=== PATIENT | female | born 1955 | race Hispanic/Latino ===

== ENCOUNTER 2019-12-06 08:46 | Day surgery (SDC) | payer MEDICARE ==
[~2019-12-06] VITALS: Ht 152.4 cm; Wt 54.4 kg
[~2019-12-06 08:46] MED LIST: CARV6.25 PO; FISH OIL PO; IPRA3AMP24 IH; LISI10TA7 PO; OMEP40CA13 PO; SIMV40TA59 PO; SODIUM CHLORIDE 0.9% 1000ML 1,000 ML IV ONE; TYLENOL PM PO; VITAMIN D PO; WARF2.5T9 PO; WARF5TAB8 PO
[2019-12-06 10:00] VITALS: BP 105/51
[2019-12-06 10:09] LABS: INR 1.04 (0.85-1.15); PROTHROMBIN TIME 10.9 SEC (9.6-11.6)
[2019-12-06] MEDS ORDERED: FURO40TA5 PO (10:37)
[2019-12-06] MEDS ORDERED: PROPOFOL 10 MG/ML 20ML VIAL IV ONE (11:00)
[2019-12-06 11:22] VITALS: BP 84/32
[2019-12-06 11:27] VITALS: BP 91/34
[2019-12-06 11:32] VITALS: BP 92/41
[2019-12-06 11:38] VITALS: BP 98/51
[2019-12-06 11:47] VITALS: BP 101/64
== END 2019-12-06 11:50 | disposition home or self-care (01) ==
LOC: ENDO 08:46 → DAH 08:46 → ENDO 11:50
PROVIDERS: ATTEND Internal Medicine
DX: Z12.11 Encounter for screening for malignant neoplasm of colon (principal); K57.30 Diverticulosis of large intestine without perforation or abscess without bleeding; K64.0 First degree hemorrhoids; K21.9 Gastro-esophageal reflux disease without esophagitis; I11.0 Hypertensive heart disease with heart failure; I50.9 Heart failure, unspecified; I25.10 Atherosclerotic heart disease of native coronary artery without angina pectoris; J44.9 Chronic obstructive pulmonary disease, unspecified; E78.5 Hyperlipidemia, unspecified; Z95.0 Presence of cardiac pacemaker; Z98.890 Other specified postprocedural states; Z95.2 Presence of prosthetic heart valve; Z79.899 Other long term (current) drug therapy; Z72.89 Other problems related to lifestyle; Z79.01 Long term (current) use of anticoagulants; Z86.010 Personal history of colon polyps; Z82.49 Family history of ischemic heart disease and other diseases of the circulatory system; Z83.3 Family history of diabetes mellitus; Z82.3 Family history of stroke
CPT/HCPCS: 36415; 45378; 85610; A4215; A4221; A4222; A4223; A4606; A4615; A4663; J2704; J7030

== ENCOUNTER → 2020-03-21 | Outpatient (CLI) | payer MEDICARE ==
[~2020-03-21] MED LIST changes: +FURO40TA5 PO; -SODIUM CHLORIDE 0.9% 1000ML 1,000 ML IV ONE
== END | disposition home or self-care (01) ==
LOC: SHCH 10:32
PROVIDERS: ATTEND Internal Medicine Cardiovascular Disease
DX: I07.1 Rheumatic tricuspid insufficiency (principal); I10 Essential (primary) hypertension; Z95.0 Presence of cardiac pacemaker; Z95.2 Presence of prosthetic heart valve
CPT/HCPCS: 93306

== ENCOUNTER 2021-08-15 10:44 | Inpatient (IN) | payer MEDICARE ==
[~2021-08-15] VITALS: Ht 152.4 cm; Wt 54.1 kg
[~2021-08-15 10:44] MED LIST changes: +LISI10TA24 PO; -LISI10TA7 PO; -OMEP40CA13 PO; +OMEP40CA21 PO
[2021-08-15 11:20] LABS: BASOPHILS % (AUTO) 1.1 % (0.0-5.0); EOSINOPHILS % (AUTO) 3.2 % (0.0-8.0); HEMATOCRIT 37.7 % (36-48); LYMPHOCYTES % (AUTO) 20.7 % (21.0-51.0); MEAN CORPUSCULAR HEMOGLOBIN 33.2 pg (27.0-33.0); MEAN CORPUSCULAR HGB CONC 33.2 g/dL (32.0-36.0); MEAN CORPUSCULAR VOLUME 100.3 fL (79-99); MONOCYTES % (AUTO) 16.1 % (3.0-13.0); NEUTROPHILS % (AUTO) 58.5 % (40.0-77.0); PLATELET COUNT (AUTO) 313 K/uL (130-400); RED BLOOD CELL COUNT(AUTO) 3.76 MIL/uL (4.00-5.50); WHITE BLOOD COUNT (AUTO) 7.2 K/uL (4.8-10.8)
[2021-08-15 11:28] LABS: ALBUMIN 3.9 g/dL (3.5-5.0); BILIRUBIN,DIRECT 0.1 mg/dL (0.0-0.3); BILIRUBIN,TOTAL 0.2 mg/dL (0.2-1.0); CREATININE 4.7 mg/dL (0.5-1.5); POTASSIUM 5.2 mmol/L (3.5-5.1); TOTAL PROTEIN, SERUM 8.3 g/dL (6.0-8.3)
[2021-08-15 11:33] LABS: B-TYPE NATRIURETIC PEPTIDE 142 pg/mL (0-100)
[2021-08-15] MEDS: DEXTROSE 5 %-0.45 % NACL 1,000 ML IV SCH ×2 (12:30→23:51)
[2021-08-15] MEDS ORDERED: LACTULOSE 20 GM/30 ML UDCUP PO PRN (12:30)
[2021-08-15] MEDS ORDERED: ACETAMINOPHEN 325 MG TAB PO PRN (12:30)
[2021-08-15] MEDS ORDERED: DIPHENHYDRAMINE HCL 25 MG CAPSULE PO PRN (12:30)
[2021-08-15] MEDS ORDERED: ONDANSETRON 4MG INJ IVP PRN (12:30)
[2021-08-15] MEDS ORDERED: WARFARIN SODIUM 2 MG TAB PO SCH (16:00)
[2021-08-15] MEDS ORDERED: MULT-1367 PO (16:35)
[2021-08-15] MEDS: WARFARIN SODIUM 2 MG TAB PO SCH (21:38)
[2021-08-15] MEDS: IPRATROPIUM/ALBUTEROL SULFATE 3 ML SOLUTION IH SCH (23:35)
[2021-08-16 02:15] VITALS: BP 123/42
[2021-08-16 05:46] LABS: BASOPHILS % (AUTO) 1.4 % (0.0-5.0); EOSINOPHILS % (AUTO) 6.4 % (0.0-8.0); HEMATOCRIT 34.6 % (36-48); LYMPHOCYTES % (AUTO) 30.4 % (21.0-51.0); MEAN CORPUSCULAR HEMOGLOBIN 33.4 pg (27.0-33.0); MEAN CORPUSCULAR HGB CONC 33.2 g/dL (32.0-36.0); MEAN CORPUSCULAR VOLUME 100.6 fL (79-99); NEUTROPHILS % (AUTO) 45.5 % (40.0-77.0); PLATELET COUNT (AUTO) 301 K/uL (130-400); RED BLOOD CELL COUNT(AUTO) 3.44 MIL/uL (4.00-5.50); RED CELL DISTRIBUTION WIDTH 13.1 % (11.0-15.5); WHITE BLOOD COUNT (AUTO) 6.5 K/uL (4.8-10.8)
[2021-08-16 06:07] LABS: BILIRUBIN,DIRECT 0.1 mg/dL (0.0-0.3); BILIRUBIN,TOTAL 0.2 mg/dL (0.2-1.0); CREATININE 2.1 mg/dL (0.5-1.5); POTASSIUM 4.9 mmol/L (3.5-5.1); TOTAL PROTEIN, SERUM 7.3 g/dL (6.0-8.3)
[2021-08-16] MEDS: IPRATROPIUM/ALBUTEROL SULFATE 3 ML SOLUTION IH SCH ×3 (06:22→22:30)
[2021-08-16 08:00] VITALS: BP 97/46
[2021-08-16] MEDS: FAMOTIDINE 20MG TAB PO SCH (09:07)
[2021-08-16] MEDS: DEXTROSE 5 %-0.45 % NACL 1,000 ML IV SCH ×2 (09:07→18:30)
[2021-08-16 10:35] LABS: INR 2.9 (0.85-1.15); PROTHROMBIN TIME 28.7 SEC (9.6-11.6)
[2021-08-16 12:00] VITALS: BP_SYST 93; BP_SYST 99; BP_DIAS 36; BP_DIAS 46
[2021-08-16 16:00] VITALS: BP 102/50
[2021-08-16 20:20] VITALS: BP 118/54
[2021-08-16] MEDS ORDERED: WARFARIN SODIUM 5 MG TAB PO SCH (22:00)
[2021-08-17 00:24] VITALS: BP 112/52
[2021-08-17] MEDS: DEXTROSE 5 %-0.45 % NACL 1,000 ML IV SCH ×2 (03:16→15:38)
[2021-08-17 04:24] VITALS: BP 111/54
[2021-08-17 05:25] LABS: BASOPHILS % (AUTO) 1.5 % (0.0-5.0); EOSINOPHILS % (AUTO) 4.5 % (0.0-8.0); HEMATOCRIT 31.2 % (36-48); LYMPHOCYTES % (AUTO) 30.3 % (21.0-51.0); MEAN CORPUSCULAR HEMOGLOBIN 33.4 pg (27.0-33.0); MEAN CORPUSCULAR HGB CONC 33.3 g/dL (32.0-36.0); MEAN CORPUSCULAR VOLUME 100.3 fL (79-99); MONOCYTES % (AUTO) 14.2 % (3.0-13.0); NEUTROPHILS % (AUTO) 49.3 % (40.0-77.0); PLATELET COUNT (AUTO) 275 K/uL (130-400); RED BLOOD CELL COUNT(AUTO) 3.11 MIL/uL (4.00-5.50); RED CELL DISTRIBUTION WIDTH 13.1 % (11.0-15.5)
[2021-08-17 05:37] LABS: INR 2.31 (0.85-1.15); PROTHROMBIN TIME 23.3 SEC (9.6-11.6)
[2021-08-17 06:04] LABS: ALBUMIN 3.1 g/dL (3.5-5.0); BILIRUBIN,TOTAL 0.2 mg/dL (0.2-1.0); CREATININE 1.3 mg/dL (0.5-1.5); POTASSIUM 4.6 mmol/L (3.5-5.1); TOTAL PROTEIN, SERUM 6.8 g/dL (6.0-8.3)
[2021-08-17] MEDS: IPRATROPIUM/ALBUTEROL SULFATE 3 ML SOLUTION IH SCH ×3 (06:44→22:22)
[2021-08-17] MEDS: FAMOTIDINE 20MG TAB PO SCH (08:35)
[2021-08-17 09:27] VITALS: BP 119/53
[2021-08-17 12:00] VITALS: BP 123/57
[2021-08-17 18:53] VITALS: BP 120/53
[2021-08-17 20:20] VITALS: BP 124/58
[2021-08-17] MEDS: WARFARIN SODIUM 2 MG TAB PO SCH (22:06)
[2021-08-18 00:24] VITALS: BP 109/48
[2021-08-18] MEDS: DEXTROSE 5 %-0.45 % NACL 1,000 ML IV SCH (02:35)
[2021-08-18 04:24] VITALS: BP 132/48
[2021-08-18 05:22] LABS: BASOPHILS % (AUTO) 1.3 % (0.0-5.0); EOSINOPHILS % (AUTO) 4.6 % (0.0-8.0); HEMATOCRIT 29.7 % (36-48); LYMPHOCYTES % (AUTO) 27.2 % (21.0-51.0); MEAN CORPUSCULAR HEMOGLOBIN 33.6 pg (27.0-33.0); MEAN CORPUSCULAR VOLUME 101.7 fL (79-99); MONOCYTES % (AUTO) 12.8 % (3.0-13.0); NEUTROPHILS % (AUTO) 53.8 % (40.0-77.0); PLATELET COUNT (AUTO) 270 K/uL (130-400); RED BLOOD CELL COUNT(AUTO) 2.92 MIL/uL (4.00-5.50); RED CELL DISTRIBUTION WIDTH 13.2 % (11.0-15.5); WHITE BLOOD COUNT (AUTO) 6.9 K/uL (4.8-10.8)
[2021-08-18 05:37] LABS: BILIRUBIN,TOTAL 0.4 mg/dL (0.2-1.0); CREATININE 0.9 mg/dL (0.5-1.5); TOTAL PROTEIN, SERUM 6.4 g/dL (6.0-8.3)
[2021-08-18] MEDS: IPRATROPIUM/ALBUTEROL SULFATE 3 ML SOLUTION IH SCH (06:36)
[2021-08-18 07:30] VITALS: BP 128/47
[2021-08-18] MEDS: FAMOTIDINE 20MG TAB PO SCH (09:02)
[2021-08-18 11:30] VITALS: BP 122/53
== END 2021-08-18 11:45 | disposition home or self-care (01) | DRG 684 ==
LOC: EDH 10:44 → EDHIP 10:45 → 3AH 08-16 00:39
PROVIDERS: ADMIT Internal Medicine; ATTEND Internal Medicine
DX: N17.9 Acute kidney failure, unspecified (principal); I50.9 Heart failure, unspecified; J44.9 Chronic obstructive pulmonary disease, unspecified; I95.9 Hypotension, unspecified; I11.0 Hypertensive heart disease with heart failure; R79.89 Other specified abnormal findings of blood chemistry; Z95.2 Presence of prosthetic heart valve; Z79.01 Long term (current) use of anticoagulants; Z95.0 Presence of cardiac pacemaker
CPT/HCPCS: 36415; 71045; 76770; 80048; 80053; 80076; 83880; 85025; 85610; 93005; 93306; 93356; 94640; 94664; G0378; J7042

== ENCOUNTER → 2023-06-02 | Outpatient (CLI) | payer MEDICARE ==
[~2023-06-02] MED LIST changes: -FURO40TA5 PO; -LISI10TA24 PO; +MULT-1367 PO
== END | disposition home or self-care (01) ==
LOC: SHCH 08:25
PROVIDERS: ATTEND Internal Medicine Cardiovascular Disease
DX: I25.10 Atherosclerotic heart disease of native coronary artery without angina pectoris (principal); Z95.2 Presence of prosthetic heart valve
CPT/HCPCS: 93306

== ENCOUNTER → 2023-06-23 | Outpatient (CLI) | payer MEDICARE ==
[~2023-06-23] MED LIST changes: +REGADENOSON 0.4 MG/5 ML PF SYG IVP ONE
== END | disposition home or self-care (01) ==
LOC: SHCH 08:15
PROVIDERS: ATTEND Internal Medicine Cardiovascular Disease
DX: I51.7 Cardiomegaly (principal); I42.9 Cardiomyopathy, unspecified; Z95.0 Presence of cardiac pacemaker; R06.09 Other forms of dyspnea; R11.0 Nausea
CPT/HCPCS: 78452; 96374; 93017; J2785; A9500 ×2

== ENCOUNTER → 2023-08-24 | Outpatient (CLI) | payer MEDICARE ==
[~2023-08-24] MED LIST changes: -REGADENOSON 0.4 MG/5 ML PF SYG IVP ONE
[2023-08-24 12:15] LABS: CREATININE 1.1 mg/dL (0.5-1.5); POTASSIUM 4.2 mmol/L (3.5-5.1)
== END | disposition home or self-care (01) ==
LOC: LAB 08:40
PROVIDERS: ATTEND Internal Medicine Cardiovascular Disease
DX: I10 Essential (primary) hypertension (principal)
CPT/HCPCS: 36415; 80048

== ENCOUNTER → 2023-08-31 | Outpatient (CLI) | payer MEDICARE ==
[2023-08-31 12:26] LABS: CREATININE 1.1 mg/dL (0.5-1.5); POTASSIUM 4.3 mmol/L (3.5-5.1)
== END | disposition home or self-care (01) ==
LOC: LAB 09:10
PROVIDERS: ATTEND Internal Medicine Cardiovascular Disease
DX: I10 Essential (primary) hypertension (principal)
CPT/HCPCS: 36415; 80048

== ENCOUNTER → 2023-09-07 | Outpatient (CLI) | payer MEDICARE ==
[2023-09-07 12:19] LABS: CREATININE 1.1 mg/dL (0.5-1.5); POTASSIUM 4.9 mmol/L (3.5-5.1)
== END | disposition home or self-care (01) ==
LOC: LAB 08:58
PROVIDERS: ATTEND Internal Medicine Cardiovascular Disease
DX: I10 Essential (primary) hypertension (principal)
CPT/HCPCS: 36415; 80048

== ENCOUNTER → 2023-10-16 | Outpatient (CLI) | payer MEDICARE | END | disposition home or self-care (01) | LOC: SHCH 11:01 | PROVIDERS: ATTEND Internal Medicine Cardiovascular Disease | DX: I07.1 Rheumatic tricuspid insufficiency (principal); I27.20 Pulmonary hypertension, unspecified | CPT/HCPCS: 93306 ==

== ENCOUNTER → 2024-10-10 | Outpatient (CLI) | payer MEDICARE ==
[2024-10-10 12:43] LABS: POTASSIUM 4.4 mmol/L (3.5-5.1)
== END | disposition home or self-care (01) ==
LOC: LAB 10:32
PROVIDERS: ATTEND Internal Medicine Cardiovascular Disease
DX: I10 Essential (primary) hypertension (principal)
CPT/HCPCS: 36415; 80048; 83880

== ENCOUNTER → 2024-11-11 | Outpatient (CLI) | payer MEDICARE ==
--- NOTE | 2024-11-14 09:01 | HMCSR ---
APPROVED REPORT EXAM: Two-dimensional and M-mode echocardiogram with Doppler and color Doppler. INDICATION ICD: I50.20 Chronic systolic heart failure 2D Dimensions RVDd5.8 cmLVEF(%)52.3 (>50%)LVED Vol(simp.)154.0 mL IVSd1.1 (0.7-1.1cm)FS(%)27 %LVES Vol(simp.)81.0 mL LVDd5.0 (3.8-5.6cm)IVC diam2.2 cmLVEF(%, simp.)48 % PWd0.8 (0.7-1.1cm)LA ESV INDEX (BP)74.31 mL/m2 LVDs3.7 (2.5-4.0cm) Aortic Valve AoV Vmax2.2 m/Rober Peak GR18.5 mmHgLVOT Vmax1.3 m/s AoV VTI0.5 mAo Mean GR10.1 mmHgLVOT VTI0.30 m Mitral Valve MV E Ncct592.2 cm/sDECEL Rcdi384 msMV Peak GR20 mmHg P 1/2 T130 msMV Mean GR8 mmHg MVA (PHT)1.7 cm2 TDI E/E' Hwjvpr33.0E/E' Zoqyzid20.1 Pulmonary Valve PV Vmax1.4 m/sPV VTI0.29 mPV Mean GR3 mmHg PV Peak GR7.5 mmHgPI End Lissa. Hernandez 0.4 cm/s Tricuspid Valve TR Vmax2.9 m/sRAP (EST) 8 geInAVCQ08.5 mmHg TR Peak GR32.5 mmHg Left Ventricle The left ventricle structure and function is normal. Septal hypokinesis. There is borderline left felicitas tricular hypertrophy. LVEF is 45-50%. Grade 3 diastolic dysfunction. Right Ventricle The right ventricle is severely dilated. Right ventricular systolic function is moderately reduced. Atria The left atrium is severely dilated. The right atrium appears dilated. Aortic Valve Bioprosthetic aortic valve is present. Prosthetic aortic valve is normal in appearance and well seate d. AV Dimensionless Index is 0.63 Maximum pressure gradient of 18.5 mmHg and mean pressure gradient o f 10.1 mmHg. 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 Maximum pressure gradient of 19.8 mmHg and mean pressure gradient of 7.9 mmHg. Tricuspid Valve The tricuspid valve leaflets appear normal. There is mild to moderate tricuspid regurgitation. Right ventricular systolic pressure is estimated at 40-50 mmHg. Pulmonic Valve The pulmonic valve leaflets are thin and pliable; valve motion is normal. There is trace pulmonic josette vular regurgitation. Great Vessels The aortic root is not well visualized but is probably normal size. IVC is dilated and collapses >50% with inspiration. Pericardium No pericardial effusion. Conclusion LVEF is 45-50%. Grade 3 diastolic dysfunction. Septal hypokinesis. The right ventricle is severely dilated. Right ventricular systolic function is moderately reduced. Bioprosthetic aortic valve is present. Prosthetic aortic valve is normal in appearance and well seated. Maximum pressure gradient of 18.5 mmHg and mean pressure gradient of 10.1 mmHg. There is a mechanical mitral valve. Maximum pressure gradient of 19.8 mmHg and mean pressure gradient of 7.9 mmHg. There is mild to moderate tricuspid regurgitation. Right ventricular systolic pressure is estimated at 40-50 mmHg.
== END | disposition home or self-care (01) ==
LOC: SHCH 13:54
PROVIDERS: ATTEND Internal Medicine Cardiovascular Disease
DX: I07.1 Rheumatic tricuspid insufficiency (principal); I50.22 Chronic systolic (congestive) heart failure; Z95.3 Presence of xenogenic heart valve
CPT/HCPCS: 93306

== ENCOUNTER → 2025-07-20 | Outpatient (CLI) | payer MEDICARE ==
--- NOTE | 2025-07-20 16:30 | HMCIMG ---
EXAM: CT Chest Without IV contrast. CLINICAL HISTORY: Pulmonary fibrosis, unspecified TECHNIQUE: Axial computed tomography images of the chest without intravenous contrast. COMPARISON: None provided. FINDINGS: LUNGS: No pulmonary mass. Coarse interstitial markings are seen diffusely.Diffuse reticulation is seen PLEURAL SPACES: No evidence of pneumothorax. No pleural effusion. HEART: No cardiomegaly. No significant pericardial effusion. LYMPH NODES: moderate lymphadenopathy is evident. UPPER ABDOMEN: The upper abdominal solid organs are normal with questionable lesion posterior right kidney BONES: No acute osseous abnormality. IMPRESSION: Extensive interstitial lung disease likely chronic. Mediastinal adenopathy /Debord
== END | disposition home or self-care (01) ==
LOC: RAH 13:22
PROVIDERS: ATTEND Internal Medicine Cardiovascular Disease
DX: J84.10 Pulmonary fibrosis, unspecified (principal); R59.0 Localized enlarged lymph nodes
CPT/HCPCS: 71250